=== PATIENT | female | born 1990 | race Caucasian/White ===

== ENCOUNTER 2017-05-30 20:22 | Emergency (ER) | payer BC, OTHER ==
[~2017-05-30] VITALS: Ht 170.2 cm; Wt 117.9 kg
--- NOTE | 2017-05-30 22:31 | ED Lower Extremity ---
General Chief Complaint: Lower Extremity Stated Complaint: LEG INJ Nursing Triage Note: patient reports R leg pain after falling through deck sunday Nursing Sepsis Screen: No Definite Risk Source: patient Exam Limitations: no limitations History of Present Illness Date Seen by Provider: May 30, 2017 Time Seen by Provider: 22:16 Initial Comments Patient presents to ER by private conveyance with a chief complaint of 5 days ago she fell through a deck scraping the lateral side of her right leg and bruising the medial side of her left leg. The bruising and swelling were iced for the first several days but they've then persisted and she is now having some swelling and edema around her left ankle although she is having no pain. She is walking appropriately. She has no prior history of injury to her right leg. She's never had a clot nor does she have any primary family history of clots. She has no clotting disorder or easy eating or bruising disorder. She is not on any medications nor does she take a control. She does not smoke cigarettes. She was concerned however because she took picture of incentive to her sister who is a nurse and her sister told her that it might be a DVT. Allergies and Home Medications Allergies Coded Allergies: No Known Drug Allergies (Unverified , 05/30/17) Home Medications No Active Prescriptions or Reported Meds Patient Home Medication List Home Medication List Reviewed: Yes Constitutional: No chills, No diaphoresis Respiratory: No cough, No hemoptysis, No phlegm, No short of breath Cardiovascular: No chest pain, No Hx of Intervention, No palpitations Gastrointestinal: No abdominal pain, No constipation, No nausea Genitourinary: No discharge, No dysuria : No LMP: May 09, 2017 Control/STD Prophylaxis: None Musculoskeletal: No back pain, No joint pain Skin: see HPI, change in color (old bruising) Past Mwarfav-Uzjqzf-Weihxn Hx Patient Social History Alcohol Use: Denies Use Recreational Drug Use: No Smoking Status: Never a Smoker Recent Foreign Travel: No Contact w/Someone Who Travel: No Recent Infectious Disease Expo: No Physical Abuse: No Sexual Abuse: No Surgeries History of Surgeries: No Respiratory History of Respiratory Disorde: No Cardiovascular History of Cardiac Disorders: No Neurological History of Neurological Disord: No Genitourinary History of Genitourinary Disor: No Gastrointestinal History of Gastrointestinal Di: No Musculoskeletal History of Musculoskeletal Dis: No Endocrine History of Endocrine Disorders: No HEENT History of HEENT Disorders: No Cancer History of Cancer: No Psychosocial History of Psychiatric Problem: No Suicide Risk Score: 0 Integumentary History of Skin or Integumenta: No Blood Transfusions History of Blood Disorders: No Physical Exam Vital Signs Vital Signs - First Documented 05/30/17 22:01 Temp 98.2 Pulse 81 Resp 18 B/P (MAP) 157/100 (119) Pulse Ox 100 Capillary Refill : Less Than 3 Seconds General Appearance: WD/WN, no apparent distress HEENT: PERRL/EOMI, pharynx normal Neck: non-tender, normal inspection Cardiovascular: normal peripheral pulses, regular rate, rhythm Respiratory: chest non-tender, lungs clear, normal breath sounds, no respiratory distress, no accessory muscle use Gastrointestinal: non tender, soft Hips: bilateral hip non-tender, bilateral hip normal inspection, bilateral hip normal range of motion, bilateral hip no evidence of injury Legs: left leg non-tender, left leg normal inspection, bilateral leg normal range of motion, left leg no evidence of injury, right leg soft tissue tenderness, right leg swelling (mild medial knee and ankle) Knees: bilateral knee non-tender, bilateral knee normal inspection, bilateral knee normal range of motion, bilateral knee no evidence of injury, bilateral knee other (no evidence of ligament this injury) Ankles: bilateral ankle non-tender, left ankle normal inspection, bilateral ankle normal range of motion, bilateral ankle no evidence of injury, right ankle swelling (mild medial swelling from dependent drainage from the large bruise on the left medial knee), bilateral ankle other (negative for Homans sign , erythema, knotty or nodular to palpation.) Feet: bilateral foot non-tender, bilateral foot normal inspection, bilateral foot normal range of motion, bilateral foot no evidence of injury Neurologic/Tendon: normal sensation, normal motor functions, normal tendon functions, responds to pain, no evidence tendon injury Neurologic/Psychiatric: no motor/sensory deficits, alert, oriented x 3, other Skin: ecchymosis (old medial knee ecchymoses for some dependent ecchymoses in the right medial ankle.) Lymphatic: no adenopathy Progress/Results/Core Measures Results/Orders Vital Signs/I&O Vital Sign - Last 12Hours 05/30/17 22:01 Temp 98.2 Pulse 81 Resp 18 B/P (MAP) 157/100 (119) Pulse Ox 100 Blood Pressure Mean: 119 Progress Note : Time: 22:32 Progress Note No clinical evidence or signs of a DVT. The patient is a 5-day-old wound with a maturing bruise and minimal swelling of her right calf. The knee is unremarkable and the ankle was unremarkable for any ligaments injury. She has walking on it. She does not have any significant risk factors other than the injury for a DVT. She certainly having no evidence of a PE. We discussed that her clinical probability of a DVT being significant or present is exceptionally low and offered her an ultrasound if she wanted or she can just watch it and we did some thorough education on what to look for and she would prefer just to monitor it outpatient. Educated on rice therapy. Departure Impression Impression: Primary Impression: Traumatic ecchymosis of right lower leg Qualified Codes: S80.11XA - Contusion of right lower leg, initial encounter Additional Impression: Abrasion hip/leg Disposition: HOME, SELF-CARE Condition: Stable Departure-Patient Inst. Decision time for Depature: 22:33 Referrals: NO,LOCAL PHYSICIAN (PCP) Primary Care Physician Patient Instructions: Knee Pain (DC) Add. Discharge Instructions: Use a compression dressing, ice for the first 3 days after an injury and keep it elevated and rest it when possible. Stay mobile and active. If he started to notice red, knotty, firm, painful, warm to touch appearance of your leg or you start to have difficulty breathing, or chest pain return to the ER immediately. All discharge instructions reviewed with patient and/or family. Voiced understanding. Scripts No Active Prescriptions or Reported Meds Work/School Note: Work Release Form Date Seen in the Emergency Department: May 30, 2017 Return to Work: May 31, 2017 Restrictions: No Restrictions YOHAN MELO May 30, 2017 22:30
[2017-05-30 22:36] VITALS: BP 157/100
== END 2017-05-30 22:36 | disposition home or self-care (01) ==
LOC: EDUNIT# 20:22 → ER 20:25
DX: S80.11XA Contusion of right lower leg, initial encounter (principal); S70.211A Abrasion, right hip, initial encounter; W17.89XA Other fall from one level to another, initial encounter
CPT/HCPCS: 99283

== ENCOUNTER → 2018-07-09 | Outpatient (CLI) | payer MEDICAID ==
--- NOTE | 2018-07-09 16:00 | Diagnostic Imaging Report ---
PROCEDURE: US OB SINGLE FETUS <14 WKS. TECHNIQUE: Multiple real-time grayscale images were obtained over the gravid uterus in various projections. INDICATION: dating. FINDINGS: There is a single live intrauterine fetus of approximately 12 weeks 3 days gestational age. heart rate was recorded at 155 beats per minute. No perigestational sac hemorrhage is detected. Gestational sac shape is within normal limits. Ovaries were not visualized. No adnexal mass or free fluid is seen. IMPRESSION: Single live IUP of 12 weeks 3 days gestational age. Estimated date of confinement sonographically is 01/18/2019. Dictated by: Dictated on workstation # [id number]
== END ==
LOC: RAD 14:58
PROVIDERS: ATTEND Obstetrics & Gynecology
DX: O36.80X0 Pregnancy with inconclusive fetal viability, not applicable or unspecified (principal); Z3A.12 12 weeks gestation of pregnancy
CPT/HCPCS: 76801

== ENCOUNTER → 2018-08-28 | Outpatient (CLI) | payer MEDICAID ==
--- NOTE | 2018-08-28 15:58 | Diagnostic Imaging Report ---
INDICATION: survey. TECHNIQUE: Multiple real-time grayscale images were obtained over the gravid uterus. COMPARISON: 07/09/2018. FINDINGS: There is a single live fetus in a variable presentation. heart rate was recorded at 146 beats per minute. Placenta is anterior. Amniotic fluid volume is unremarkable. Cervical length is 3.6 cm. survey shows kidneys, bladder and stomach to be unremarkable. The brain is unremarkable. There is a three-vessel cord with normal insertion. The spine is unremarkable. Four-chamber heart view is limited in evaluation. Biometrical measurements are as follows: Biparietal 4.84 cm, age 20 weeks 5 days. Head circumference 17.44 cm, age 20 weeks 0 days. Abdominal circumference 14.24 cm, age 19 weeks 5 days. Femur length 3.27 cm, age 20 weeks 2 days. Sonographic estimate age: 20 weeks 2 days. Sonographic estimated date of delivery: 01/13/2019. Estimated Weight: 321 gm (+/- 47 gm). LMP percentile: 66%. heart rate: 146 beats per minute. number: 1 of 1. IMPRESSION: Single live IUP 20 weeks 2 day gestational age demonstrating normal interval growth when compared with prior study. survey is unremarkable although the four-chamber heart view was somewhat limited. Dictated by: Dictated on workstation # [id number]
== END ==
LOC: RAD 14:07
PROVIDERS: ATTEND Obstetrics & Gynecology
DX: Z36.89 Encounter for other specified antenatal screening (principal); Z3A.20 20 weeks gestation of pregnancy
CPT/HCPCS: 76805

== ENCOUNTER → 2018-11-01 | Outpatient (CLI) | payer MEDICAID ==
--- NOTE | 2018-11-01 13:48 | Diagnostic Imaging Report ---
INDICATION: survey. TECHNIQUE: Multiple real-time grayscale images were obtained over the gravid uterus. COMPARISON: 08/28/2018 and 07/09/2018 FINDINGS: The previous OB ultrasound exam of 08/28/2018 noted single live fetus approximately 20 weeks x2 days gestation. There are no abnormalities identified although the four-chamber heart view with less than optimal. On this exam, the fetus is again visualized. The fetus is cephalic in presentation. heart motion was noted and a rate of 135 bpm was recorded. There were no abnormalities identified. In particular, the four-chamber heart view appears to within normal limits. The growth perimeters were not obtained for this study. Placenta is anterior and there is no previa. The amniotic fluid volume is within normal limits. Biometrical measurements are as follows: Biparietal cm, age weeks days. Head circumference cm, age weeks days. Abdominal circumference cm, age weeks days. Femur length cm, age weeks days. Sonographic estimate age: weeks days. Sonographic estimated date of delivery: . Estimated Weight: gm (+/- gm). LMP percentile: %. heart rate: beats per minute. number: of . IMPRESSION: 1. There is a single live fetus of approximately 28 weeks 6 days gestation. EDC remains 01/18/2019. 2. There were no abnormalities identified. In particular four-chamber heart view appears to be within normal limits. Dictated by: Dictated on workstation # [id number]
== END ==
LOC: RAD 10:39
PROVIDERS: ATTEND Obstetrics & Gynecology
DX: Z34.93 Encounter for supervision of normal pregnancy, unspecified, third trimester (principal); Z04.89 Encounter for examination and observation for other specified reasons; Z3A.28 28 weeks gestation of pregnancy
CPT/HCPCS: 76816

== ENCOUNTER 2019-01-19 19:58 | Inpatient (IN) | payer MEDICAID ==
[~2019-01-19] VITALS: Ht 170.2 cm; Wt 127.0 kg
--- NOTE | 2019-01-19 19:53 | NUR ---
KHOI HOWARD presented to unit via from ED, accompanied by s/o, with c/o INDUCTION 40 03/11. KHOI HOWARD weighed, gowned, voided, and to bed. EFHM and TOCO applied, VS taken. KHOI HOWARD oriented to bed controls, call light, TV, heat, and A/C controls.
--- NOTE | 2019-01-19 20:05 | NUR ---
ATTEMPTED TO INITIATE AT THIS TIME. UNABLE TO FIND FHT. PT REPORTS SHE HASN'T FELT MUCH MOVEMENT FOR THE LAST WEEK AND DEFINITELY NOT IN THE LAST SEVERAL DAYS. PT REPORTS SHE HAD GOOD FHT AT HER APPT ON SUNDAY. SONO MACHINE OBTAINED TO DETERMINE POSITION. UNABLE TO FIND ANY HEART MOVEMENT AFTER A COUPLE OF MINUTES. DR CAPELLAN CALLED AND ABOVE REPORTED. WILL PRESENT TO HOSPITAL.
[2019-01-19 20:10] VITALS: BP 130/81
--- NOTE | 2019-01-19 20:45 | NUR ---
DR PAGE HERE PER DR CAPELLAN'S PHONE CONVERSATION WITH HIM TO CONFIRM NO FHT.
[2019-01-19] MEDS ORDERED: D5 LR IV SOLUTION 1,000 ML IV SCH (20:58)
[2019-01-19] MEDS ORDERED: ceFAZolin 2 GM IV Premixed 50 ML IV SCH (20:58)
[2019-01-19] MEDS ORDERED: CITRIC ACID/SOB CIT (BICITRA) 30 ML UDC PO ONE (21:00)
[2019-01-19] MEDS ORDERED: METOCLOPRAMIDE INJ 10 MG/2 ML (REGLAN) IV ONE (21:00)
[2019-01-19] MEDS ORDERED: FAMOTIDINE 20MG/2ML IV (PEPCID) IV ONE (21:00)
[2019-01-19 21:10] VITALS: BP 134/83
[2019-01-19] MEDS ORDERED: LACTATED RINGERS 1,000 ML IV ONE (21:10)
--- NOTE | 2019-01-19 21:13 | NUR ---
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 PT WILL DECIDE IF SHE WISHES TO PROCEED WITH EPIDURAL FOR INDUCTION OR TO PROCEED WITH C/SECTION.
[2019-01-19 21:21] LABS: BASOPHILS % (AUTO) 0 % (0-10); EOSINOPHILS # (AUTO) 0.1 10^3/uL (0.0-0.3); EOSINOPHILS % (AUTO) 1 % (0-10); HEMATOCRIT 37 % (35-52); HEMOGLOBIN 12.4 G/DL (11.5-16.0); LYMPHOCYTES # (AUTO) 1.6 X 10^3 (1.0-4.0); LYMPHOCYTES % (AUTO) 13 % (12-44); MEAN CORPUSCULAR HEMOGLOBIN 30 PG (25-34); MEAN CORPUSCULAR HGB CONC 33 G/DL (32-36); MEAN CORPUSCULAR VOLUME 88 FL (80-99); MEAN PLATELET VOLUME 10.4 FL (7.4-10.4); MONOCYTES # (AUTO) 0.8 X 10^3 (0.0-1.0); MONOCYTES % (AUTO) 6 % (0-12); NEUTROPHILS # (AUTO) 9.8 X 10^3 (1.8-7.8); NEUTROPHILS % (AUTO) 80 % (42-75); PLATELET COUNT 416 10^3/uL (130-400); RED CELL DISTRIBUTION WIDTH 13.3 % (10.0-14.5); WHITE BLOOD COUNT 12.3 10^3/uL (4.3-11.0)
--- NOTE | 2019-01-19 21:24 | History & Physical-OB ---
OB - Chief Complaint & HPI Date/Time Date of Admission: Date of Admission: Jan 19, 2019 at 19:58 Date seen by a Provider: Jan 19, 2019 Time Seen by a Provider: 08:20 Chief Complaint/History OB-Reason for Admission/Chief: Obstetrical Complication Hx : 1 Hx Para: 0 Expected Date of Delivery: Jan 18, 2019 Gestational Age in Weeks: 40 Gestational Age in Days: 1 Other reason for admission: induction at term History of Labs Rub I VDRL NR Hep B/C - HIV - GBS + A+ Other Patient was admitted for induction at 40 weeks for induction. She had an unfavorable cervix and was planned for cervical ripening. She arrived on the floor and the RN reported the patient had reported not feeling much movement since her visit with me on Sunday. She had not felt contractions but had not movement either. States she felt like the "baby may have been sleeping" and had been worried that something was wrong. She has not had leakage of fluid, bleeding, discharge, fever. We did do exam Sunday and there was amniotic fluid. Bedside US was done because I was uncertain of the position before I checked the cervix. But the position was vertex and there was adequate fluid, and movement noted on the US. the cervix was unfavorable so she was scheduled for induction and hearttones were 142. The RN did not find heart tones so she called me and I arrived immediately at the hospital and confirmed no movement and no hearttones. I called Dr. Gore to confirm this finding with another US with Dopplers. She has not felt ill, has not had headache or blurred vision. Has not had elevated blood pressures or elevated blood sugars that she knows of. Her has been uncomplicated. She does state that she has not felt the baby move as well as normal for the past few days. has been uncomplicated. She did have normal NIPT Normal US though the 20 week survey did not have a complete cardiac US but a repeat US was wnl. Allergies and Home Medications Allergies Coded Allergies: No Known Drug Allergies (Unverified , 05/30/17) Home Medications No Active Prescriptions or Reported Meds Patient Home Medication List Home Medication List Reviewed: Yes OB - History Hx of Present Care: Yes Ultrasounds: Normal mid trimester US Obstetrical Complications: None Medical Complications: None Information Induced Hypertension: No Maternal Gestational Diabetes: No Hemorrhage: No Obstetrical History Hx : 1 Hx Para: 0 Hx # Term Pregnancies: 0 Hx # Pregnancies: 0 Number of Living Children: 0 Patient Past Medical History NC Social History/Family History HIV/AIDS: No Recent Infectious Disease Expo: No Sexually Transmitted Disease: No Alcohol Use: Denies Use Recreational Drug Use: No Immunizations Hepatitis A: No Hepatitis B: No Tetanus Booster (TDap): Less than 5yrs Rubella: immune RPR/VDRL: Negative GBS Status: Positive HBsAG: Negative OB - Admission Exam Physical Exam Vitals: 130/80 37.3 HEENT: NCAT Heart: Rhythm Normal Lungs: Clear Abdomen: Gravid Extremities: Normal Reflexes: Normal Cervical Dilatation: other (declined) Membranes: Intact OB - Assessment/Plan/Diagnosis Assessment Assessment: other (detal demise at 40 weeks) Admission Dx 1. demise 2. 40 week gestation Admission Status: Inpatient Order (span 2 midnights) Reason for Inpatient Admission: delivery Plan Plan: Section (the patient was offered induction of labor or section. She has opted for section as cervix is unfavorable and the fetus is suspected to be large for gestational age. We will plan section under spinal anesthesia. Risks include infection, bleeding, injury to bowel, bladder and ureter. She understands these risks and understands that there are risks associated with anesthesia. After we planned the cesaren sectoin it was determined that she had eaten within the last few house. We will plan the section for tomorrow am. She has had some contractions and mild ), Other (causing some cramping. Will still plan Cs in the am. Consents h ave been signed. Will do torch titers, CMP, TSH, CBC, T&S and other workup for demise. Will consider other workup after delviery of the fetus. ) MYRON CAPELLAN DO Jan 19, 2019 21:24 POS
--- NOTE | 2019-01-19 21:35 | NUR ---
Emilie ARECHIGA CRNA HERE. IN TO TALK WITH PT.
[2019-01-19 21:37] LABS: PROTHROMBIN TIME PATIENT 13.6 SEC (12.2-14.7)
[2019-01-19] MEDS ORDERED: LACTATED RINGERS 1,000 ML BAG IV ONE (21:37)
[2019-01-19 21:43] LABS: ALANINE AMINOTRANSFERASE 20 U/L (0-55); ALBUMIN 3.6 GM/DL (3.2-4.5); ALKALINE PHOSPHATASE 265 U/L (40-136); BILIRUBIN,TOTAL 0.4 MG/DL (0.1-1.0); BUN/CREATININE RATIO 11; CALCIUM 9.4 MG/DL (8.5-10.1); CARBON DIOXIDE 17 MMOL/L (21-32); CHLORIDE 106 MMOL/L (98-107); CREATININE SERUM 0.71 MG/DL (0.60-1.30); GFR ESTIMATED > 60; GLUCOSE 89 MG/DL (70-105); POTASSIUM 4.3 MMOL/L (3.6-5.0); SODIUM 135 MMOL/L (135-145); TOTAL PROTEIN 7.7 GM/DL (6.4-8.2)
--- NOTE | 2019-01-19 21:45 | NUR ---
DECISION MADE TO POSTPONE C/SECTION UNTIL 0730 D/T PT EATING AT 1800. PLAN DISCUSSED WITH PT AND FAMILY.
[2019-01-19] MEDS ORDERED: NIFEdipine 10 MG CAPS (WOMEN'S SERVICES ONLY!!!) PO ONE ×2 (21:49→22:00)
[2019-01-19] MEDS ORDERED: morphine INJ 10 MG/ML 1ML (SYR OR VIAL) IVP STA (21:51)
[2019-01-19] MEDS ORDERED: CATHETER FLUSH 10 ML SYR IV SCH (22:00)
--- NOTE | 2019-01-19 22:25 | NUR ---
PT AMB TO RM 303 FOR COMFORT.
[2019-01-19 23:00] VITALS: BP 128/79
[2019-01-20] VITALS (11 sets, daily range): BP systolic 108–129; BP diastolic 62–79
--- NOTE | 2019-01-20 00:40 | NUR ---
ADIEL ADMINISTERED PT IS HAVING TROUBLE RESTING.
[2019-01-20] MEDS: ZOLPIDEM 5 MG (AMBIEN) TAB PO SCH ×2 (00:43→21:59)
--- NOTE | 2019-01-20 01:30 | NUR ---
PT RESTING SOUNDLY. NO S/S OF DISTRESS OR DISCOMFORT NOTED.
[2019-01-20] MEDS ORDERED: NIFEdipine 10 MG CAPS (WOMEN'S SERVICES ONLY!!!) PO SCH (02:00)
--- NOTE | 2019-01-20 03:15 | NUR ---
PT CONT TO REST WELL. NO S/S OF DISTRESS OR DISCOMFORT NOTED.
--- NOTE | 2019-01-20 05:30 | NUR ---
PT RESTING WELL. S/O AND MOTHER ALSO RESTING AT SIDE. PT NOT AWAKENED AT THIS TIME.
[2019-01-20] MEDS ORDERED: FAMOTIDINE 20MG/2ML IV (PEPCID) ONE (05:46)
[2019-01-20] MEDS ORDERED: METOCLOPRAMIDE INJ 10 MG/2 ML (REGLAN) ONE (05:46)
[2019-01-20] MEDS ORDERED: OXYTOCIN/NORMAL SALINE 1,000 ML IV ONE (07:00)
[2019-01-20] MEDS ORDERED: DEXAMETHASONE 10 MG/ML (DECADRON) 1 ML VIAL ONE (07:01)
[2019-01-20] MEDS ORDERED: ONDANSETRON 4 MG/2 ML (SDV) Z0FRAN ONE (07:01)
[2019-01-20] MEDS ORDERED: METOCLOPRAMIDE INJ 10 MG/2 ML (REGLAN) IV ONE (07:02)
[2019-01-20] MEDS ORDERED: FAMOTIDINE 20MG/2ML IV (PEPCID) IV ONE (07:03)
[2019-01-20] MEDS ORDERED: proPOfol 200 MG/20 ML (DIPRIVAN) VIAL IV ONE (07:04)
[2019-01-20] MEDS ORDERED: fentaNYL INJECTION 100 MCG/2 ML AMP ONE (07:04)
--- NOTE | 2019-01-20 07:15 | NUR ---
TO OB OR AMB FOR A PRIMARY SECTION BY DR. CAPELLAN OF A NON-VIABLE ACC BY CLINICAL LABORATORY SERVICE TEACHER.
[2019-01-20] MEDS ORDERED: MIDAZOLAM 2 MG/2 ML (VERSED) VIAL ONE (07:16)
[2019-01-20] MEDS ORDERED: ceFAZolin 2 GM IV Premixed 50 ML ONE (07:19)
--- NOTE | 2019-01-20 07:24 | Progress Note-Pre Operative ---
Pre-Operative Progress Note H&P Reviewed The H&P was reviewed, patient examined and no changes noted. Date Seen by Provider: Jan 20, 2019 Time Seen by Provider: 07:00 Date H&P Reviewed: Jan 20, 2019 Time H&P Reviewed: 07:00 Pre-Operative Diagnosis: demise at 40 weeks, unfavorable cervix MYRON CAPELLAN DO Jan 20, 2019 07:24 POS
[2019-01-20] MEDS ORDERED: LACTATED RINGERS 1,000 ML IV PRN (07:36)
--- NOTE | 2019-01-20 07:44 | NUR ---
0744 NON-VIABLE MALE DELIVERED VIA PRIMARY SECTION BY DR. CAPELLAN. SHOWN BRIEFLY TO MOM, DAD, AND GRANDMOTHER. TO WARMER TO WIPE OFF EXCESS BLOOD. 0746 WEIGHT OBTAINED AT 8#0 OZ. WRAPPED IN BLANKETS. 0748 TO DAD'S ARMS PER MOM'S REQUEST. 0750 PLACED IN MOM'S ARMS THEN TO GRANDMOTHER. 0800 THIS RN STANDING WITH DAD AND GRANDMOTHER IN OR WHILE PT BEING CONSOLED BY FAMILY. GRANDMOTHER HOLDING INFANT. 0825 INFANT PLACED IN OPEN CRIB AND TRANSFERRED TO OB PAR AWAITING TRANSFER OF MOM TO OB PAR.
[2019-01-20] MEDS ORDERED: BUPIVACAINE 0.25% 30 ML (SENSORCAINE) VIAL ONE (08:05)
[2019-01-20] MEDS ORDERED: OXYTOCIN/NORMAL SALINE 500 ML IV SCH (08:28)
[2019-01-20] MEDS ORDERED: LORazepam 0.5 MG (ATIVAN) TABLET PO PRN (08:30)
[2019-01-20] MEDS ORDERED: morphine INJ 4 MG/ML 1 ML (VIAL/SYRINGE) IVP PRN (08:30)
[2019-01-20] MEDS ORDERED: TETANUS,DIPTH,PERTUSS P/F (BOOSTRIX) 0.5 ML VIAL IM SCH (08:30)
[2019-01-20] MEDS ORDERED: MEASLES,MUMPS,RUBELLA 1 EA INJ SC SCH (08:30)
--- NOTE | 2019-01-20 08:34 | Cesarean Section Operative ---
Procedure Procedure Note Pre-operative Diagnosis: Lise Ordoñez is a 28 /Para 1 / 0, Gestational Age 40 2/7 weeks with demise unfavorable cervix Post-operative Diagnosis: same Procedure: Primary low transverse section Physician: MYRON CAPELLAN [employer] Internship: MICHI Schulte Estimated blood loss: 500 mL Disposition: stable Findings: Nonviable male , 8 #, intact placenta, 3vc/ nuchal cord, normal appearing uterus, tubes, and ovaries. Light meconium Indications:Lise Ordoñez is a 28 /Para 1 / 0,Gestational Age 40 2/7 weeks with demise unfavorable cervix Procedure Details: The patient was seen in pre-op and the procedure was discussed with the patient in full, including the risks, benefits, and alternatives. All questions were answered. The patient was taken to the operating room and a time out was performed, verifying patient and procedure. After spinal anesthesia was placed by our anesthesia colleagues, the patient was placed in the dorsal supine with leftward tilt for uterine displacement.~ Her abdomen was then prepped and draped in the typical sterile fashion. A Pf annenstiel skin incision was made using a scalpel and carried down through the underlying fascia. The fascia was incised in the midline and tented up using Phuong clamps. On both the inferior and superior fascia side the rectus muscle was dissected off bluntly and sharply using Palacios scissors. The peritoneum was identified and entered bluntly in the midline. This was then stretched laterally using manual strength. After entering the abdominal cavity and confirming lack of intraperitoneal adhesions, a large Antoine retractor was placed and the lower uterine segment was visualized. A bladder flap was created with the use of Metzenbaum scissors.~ A scalpel was utilized to make a low transverse uterine incision. Amniotomy was performed with an Allis clamp with return of clear fluid. The 's head was grasped and brought to the level of the incision. Fundal pressure was applied and infant was delivered without difficulty. Mouth and nares were suctioned with bulb suction. After the umbilical cord was clamped and cut, the was handed off to the pediatric staff. A sample of cord blood was then obtained. The placenta was delivered intact via uterine massage. The uterus was exteriorized and cleared of all clots and debris. The uterine incision was closed using 0 Vicryl in a running locked fashion. A second imbricated layer was placed using 0 Vicryl in a running fashion as well. The uterus was flexed forward and the posterior rectouterine space was inspected and cleared of all clots and debris. Again the hysterotomy site was examined and hemostasis was observed. The bilateral tubes and ovaries appeared normal. The uterus was placed back into the abdominal cavity and abdominal gutters were cleared of all clots and debris. A final check of the uterine incision showed it to be hemostatic. The peritoneum was closed using 3-0 Vicryl in a running fashion. The fascia was closed with 0 Vicryl in a running fashion. The subcutaneous space was hemostatic, and irrigated. The subcutaneous space was closed with 3-0 Vicryl in several single interrupted stitches. The skin was then closed using 4-0 Monocryl in a running subcuticular fashion. The skin edges were reapproximated together and were hemostatic. A pressure dressing was applied. All sponge, lap and needle counts were correct at the end of the procedure per nursing. Vitals - Labs Vital Signs - I&O Vital Signs Date Time Temp Pulse Resp B/P (MAP) Pulse Ox O2 Delivery O2 Flow Rate FiO2 01/20/19 07:00 36.8 99 18 125/75 (92) 98 01/19/19 23:00 36.9 104 18 128/79 (95) 01/19/19 21:10 37.3 113 18 134/83 (100) 01/19/19 20:10 37.3 108 18 99 Room Air 01/19/19 20:10 37.3 108 18 99 Room Air I & O 01/20/19 07:00 Intake Total 2007 ml Balance 2007 ml Labs Laboratory Tests 01/19/19 21:00: White Blood Count 12.3H, Red Blood Count 4.20L, Hemoglobin 12.4, Hematocrit 37, Mean Corpuscular Volume 88, Mean Corpuscular Hemoglobin 30, Mean Corpuscular Hemoglobin Concent 33, Red Cell Distribution Width 13.3, Platelet Count 416H, M leo Platelet Volume 10.4, Neutrophils (%) (Auto) 80H, Lymphocytes (%) (Auto) 13, Monocytes (%) (Auto) 6, Eosinophils (%) (Auto) 1, Basophils (%) (Auto) 0, Neutrophils # (Auto) 9.8H, Lymphocytes # (Auto) 1.6, Monocytes # (Auto) 0.8, Eosinophils # (Auto) 0.1, Basophils # (Auto) 0.0, Prothrombin Time 13.6, INR Comment 1.0, Activated Partial Thromboplast Time 28, Sodium Level 135, Potassium Level 4.3, Chloride Level 106, Carbon Dioxide Level 17L, Anion Gap 12, Blood Urea Nitrogen 8, Creatinine 0.71, Estimat Glomerular Filtration Rate > 60, BUN/Creatinine Ratio 11, Glucose Level 89, Calcium Level 9.4, Corrected Calcium 9.7, Total Bilirubin 0.4, Aspartate Amino Transf (AST/SGOT) 27, Alanine Aminotransferase (ALT/SGPT) 20, Alkaline Phosphatase 265H, Total Protein 7.7, Albumin 3.6 MYRON CAPELLAN DO Jan 20, 2019 08:34 POS
[2019-01-20] MEDS ORDERED: PHENYLEPHRINE 100 MCG/ML 10 ML (ANESTHESIA) SYR ONE (08:54)
--- NOTE | 2019-01-20 09:50 | NUR ---
TRANSFERRED TO PP ROOM 303 VIA PT BED FROM OB PAR AFTER A PRIMARY SECTION BY DR. CAPELLAN OF A STILLBORN MALE INFANT ACC BY ARMEN RN, [facility] TECH, PT'S MOM, S.O., AND STILLBORN IN CUDDLE COT. BED TO LOW POSITION. SIDE RAILS UP X4. CALL LIGHT PLACED WITHIN REACH. REVIEWED CALL LIGHT OPERATION AND BED CONTROLS WITH PT AND FAMILY. A/O X4. COLOR PINK. PT TEARFUL. LOTS OF FAMILY AT BEDSIDE.
[2019-01-20] MEDS: KETOROLAC 30 MG/ML VIAL IV SCH ×2 (10:50→17:34)
--- NOTE | 2019-01-20 11:15 | NUR ---
FAMILY AT BEDSIDE. COURTESY CART TO ROOM FROM DIETARY.
--- NOTE | 2019-01-20 11:55 | NUR ---
ASSISTED UP TO THE BATHROOM. VOIDED 100 CC URINE. PERICARE PERFORMED WITH PAD/UNDERWEAR CHANGE. BACK TO BED WITHOUT DIFFICULTY.
--- NOTE | 2019-01-20 14:15 | NUR ---
UP TO THE BATHROOM WITH MINIMAL ASSIST. VOIDED 900 CC URINE. VAG FLOW LT RUBRA. NO CLOTS. BACK TO BED. FAMILY AT BEDSIDE. REMAINS IN ROOM IN CUDDLE COT. FF U/1. VAG FLOW LT RUBRA.
[2019-01-20] MEDS: ACETAMINOPHEN 500 MG TAB (TYLENOL) PO SCH (14:30)
[2019-01-20] MEDS: METOCLOPRAMIDE 10 MG (REGLAN) TAB PO SCH ×2 (14:30→20:48)
[2019-01-20] MEDS: DOCUSATE SODIUM 100 MG (COLACE) CAP PO SCH ×2 (14:30→20:47)
--- NOTE | 2019-01-20 15:30 | NUR ---
CHAPLAIN SLADE CALLED TO CHECK ON PT AND FAMILY. DR. CAPELLAN HERE TO TALK TO FAMILY PER THEIR REQUEST.
--- NOTE | 2019-01-20 15:50 | NUR ---
DROIE HERE TO DO PHOTOS. TO NURSERY FOR INITIAL PHOTOS WHILE DR. CAPELLAN TALKING TO FAMILY AND ANSWERING QUESTIONS.
--- NOTE | 2019-01-20 16:16 | NUR ---
[employer] Worker visits throughout the day beginning at 1010 when ALFONSO Dillon notified me of demise. Provided active listening, assisted with providing information about cremation and burial, and offered safe place for grief. Provided pt and her significant other, Mainor, with a sympathy card and grief care resources.
--- NOTE | 2019-01-20 16:18 | NUR ---
The pt will be cremated through [facility].
--- NOTE | 2019-01-20 16:30 | NUR ---
PT UP TO THE BATHROOM BY HERSELF. S.O. IN ROOM. MOVING WELL. MENU GIVEN AND DIETARY NOTIFIED.
--- NOTE | 2019-01-20 17:00 | NUR ---
CHAPLAIN MELINA GUAJARDOLING HERE TO BLESS BABY PER PARENTS REQUEST.
--- NOTE | 2019-01-20 17:45 | NUR ---
EATING DINNER. S.O. AT BEDSIDE. IN CUDDLE COT.
--- NOTE | 2019-01-20 17:55 | NUR ---
REQUESTS SECOND OXYIR 5 MG FOR PAIN RATED 5/10.
--- NOTE | 2019-01-20 18:15 | NUR ---
HOLDING . STATES FAMILY COMING BACK UP TO SEE BEFORE SENDING TO MORTUARY.
--- NOTE | 2019-01-20 19:00 | NUR ---
ICE PACK FRESHENED.
--- NOTE | 2019-01-20 21:03 | NUR ---
Mortuary notified to cloth picker fetus per pt's request.
--- NOTE | 2019-01-20 21:54 | NUR ---
[facility] here to nut picker fetus, Mort[facility] Release of Body completed & signed by [employer] employee.
[2019-01-21] MEDS: IBUPROFEN 600 MG (MOTRIN) TAB PO SCH ×3 (00:13→12:29)
[2019-01-21 00:18] VITALS: BP 109/64
[2019-01-21] MEDS: ACETAMINOPHEN 500 MG TAB (TYLENOL) PO SCH ×3 (00:18→16:28)
[2019-01-21] MEDS: CATHETER FLUSH 10 ML SYR IV SCH ×2 (00:18→06:35)
[2019-01-21] MEDS: KETOROLAC 30 MG/ML VIAL IV SCH ×2 (00:18→06:35)
[2019-01-21 04:10] VITALS: BP 107/71
[2019-01-21] MEDS: METOCLOPRAMIDE 10 MG (REGLAN) TAB PO SCH ×3 (04:10→12:30)
[2019-01-21 05:44] LABS: BASOPHILS % (AUTO) 0 % (0-10); EOSINOPHILS % (AUTO) 0 % (0-10); HEMATOCRIT 30 % (35-52); HEMOGLOBIN 9.8 G/DL (11.5-16.0); LYMPHOCYTES % (AUTO) 21 % (12-44); MEAN CORPUSCULAR HEMOGLOBIN 30 PG (25-34); MEAN CORPUSCULAR HGB CONC 33 G/DL (32-36); MEAN CORPUSCULAR VOLUME 92 FL (80-99); MEAN PLATELET VOLUME 10.5 FL (7.4-10.4); MONOCYTES # (AUTO) 0.6 X 10^3 (0.0-1.0); MONOCYTES % (AUTO) 7 % (0-12); NEUTROPHILS # (AUTO) 6.8 X 10^3 (1.8-7.8); NEUTROPHILS % (AUTO) 72 % (42-75); PLATELET COUNT 330 10^3/uL (130-400); WHITE BLOOD COUNT 9.5 10^3/uL (4.3-11.0)
[2019-01-21] MEDS: DOCUSATE SODIUM 100 MG (COLACE) CAP PO SCH (07:29)
[2019-01-21 08:00] VITALS: BP 110/66
--- NOTE | 2019-01-21 08:00 | NUR ---
A.M. ASSESSMENT COMPLETED. VSS. GETTING INTO SHOWER. ICE PACK FRESHENED.
--- NOTE | 2019-01-21 10:00 | NUR ---
FAMILY AT BEDSIDE. DOING BETTER AT THIS TIME. SUPPORT GIVEN.
--- NOTE | 2019-01-21 11:20 | NUR ---
DR. CAPELLAN IN TO SEE PT.
[2019-01-21 12:30] VITALS: BP 122/65
--- NOTE | 2019-01-21 14:00 | NUR ---
SLEEPING QUIETLY. FAMILY AT BEDSIDE.
[2019-01-21] MEDS ORDERED: DOCU100C37 PO (14:49)
[2019-01-21] MEDS ORDERED: IBUP-844 PO (14:49)
[2019-01-21] MEDS ORDERED: Zolpidem Tartrate PO (14:49)
[2019-01-21] MEDS ORDERED: ACET-77 PO (14:49)
[2019-01-21] MEDS ORDERED: OXC5T PO (14:49)
--- NOTE | 2019-01-21 14:51 | Discharge Inst-Women's Service ---
Discharge Inst-Women's Serv Depart Medication/Instructions New, Converted or Re-Newed RX: RX on Chart Instructions nothing in the vagina for 6 weeks Final Diagnosis intrauterine demise primary section acute blood loss anemia Problems Reviewed?: Yes Consults/Follow Up Additional Follow Up: Yes (1 week for incision check) Activity Activity: Activity as Tolerated Driving Instructions: No Driving for 1 Week NO SMOKING: NO SMOKING Nothing Inside Vagina: No Douching, No Salley, No Tampons Diet Discharge Diet: No Restrictions Symptoms to Report to : Swelling Increased, Bleeding Excessive, Pain Increased, Vaginal Bleeding Increase, Cramps in Feet or Legs, Vaginal Discharge Foul For Any Problems or Questions: Contact Your Physician Skin/Wound Care Infection Signs and Symptoms: Increased Redness, Foul Odor of Wound, Increased Drainage, Skin Itchy or Has a Rash, Increased Swelling, Temperature Above 101 F Operative Area Clean and Dry: Keep Incision Clean/Dry Stitches/Rob/Dermabond: Dermabond Bathing Instructions: MYRON Candelario DO Jan 21, 2019 14:51 POS
--- NOTE | 2019-01-21 15:00 | Anesthesia-General Post-Op ---
General Patient Condition Mental Status/LOC: Same as Preop Cardiovascular: Satisfactory Nausea/Vomiting: Absent Respiratory: Satisfactory Pain: Controlled Complications: Absent Post Op Complications Complications None Follow Up Care/Instructions Patient Instructions None needed. Anesthesia/Patient Condition Patient Condition Patient is doing well, no complaints, stable vital signs, no apparent adverse anesthesia problems. No complications reported per nursing. MARLIN GARCIA CRNA Jan 21, 2019 15:00 POS
--- NOTE | 2019-01-21 15:04 | Discharge Summary ---
Discharge Summary Hospital Course Hospital Course Date of Admission: Jan 19, 2019 at 19:58 Admission Diagnosis : Family Physician/Provider: Cinthia Dick Dnp Date of Discharge: 01/21/19 Discharge Diagnosis: [ ] Hospital Course: [ ] Labs and Pending Lab Test: Laboratory Tests 01/21/19 05:15: White Blood Count 9.5, Red Blood Count 3.28L, Hemoglobin 9.8#L, Hematocrit 30L, Mean Corpuscular Volume 92, Mean Corpuscular Hemoglobin 30, Mean Corpuscular Hemoglobin Concent 33, Red Cell Distribution Width 13.0, Platelet Count 330, Mean Platelet Volume 10.5H, Neutrophils (%) (Auto) 72, Lymphocytes (%) (Auto) 21, Monocytes (%) (Auto) 7, Eosinophils (%) (Auto) 0, Basophils (%) (Auto) 0, Neutrophils # (Auto) 6.8, Lymphocytes # (Auto) 2.0, Monocytes # (Auto) 0.6, Eosinophils # (Auto) 0.0, Basophils # (Auto) 0.0 Microbiology 01/19/19 Urine Culture - Final, Complete NO GROWTH 01/20/19 Gram Stain, Resulted Pending 01/20/19 Anaerobic Culture, Resulted Pending 01/20/19 Surgical Culture - Preliminary, Resulted No growth Home Meds Active Acetaminophen 500 Mg Tablet 1,000 Mg PO Q8HR Docusate Sodium 100 Mg Capsule 100 Mg PO BID [Zolpidem Tartrate] 5 MG Tab 5 Mg PO HS Oxycodone IR (Oxycodone HCl) 5 Mg Tab 5 Mg PO Q4HR Ibu (Ibuprofen) 600 Mg Tablet 600 Mg PO Q6HR Discharge Physical Examination Allergies: Coded Allergies: No Known Drug Allergies (Unverified , 05/30/17) Vitals & I&Os Vital Signs Date Time Temp Pulse Resp B/P (MAP) Pulse Ox O2 Delivery O2 Flow Rate FiO2 01/21/19 12:30 36.8 74 18 122/65 (84) 99 Room Air 01/20/19 08:29 2 Discharge Summary Date of Admission Jan 19, 2019 at 19:58 Date of Discharge Discharge Date: Jan 21, 2019 Clinical Quality Measures DVT/VTE Risk/Contraindication: Risk Factor Score Per Nursin RFS Level Per Nursing on Admit: 2=Moderate MYRON CAPELLAN DO Jan 21, 2019 15:04 POS
[2019-01-21 16:00] VITALS: BP 129/76
--- NOTE | 2019-01-21 16:55 | NUR ---
DISCHARGE INSTRUCTIONS REVIEWED WITH PT AND COPY GIVEN. STATES UNDERSTANDING OF ALL INSTRUCTIONS AND NEED TO F/U SCHEDULED AND NEEDED. MOM LEFT TO GET RXS FILLED.
[2019-01-21 17:15] VITALS: BP 129/76
--- NOTE | 2019-01-21 17:15 | NUR ---
DISMISSED FROM [facility] VIA W/C TO FAMILY CAR IN STABLE CONDITION ACC BY Mynor,MOTHER, AND ARMEN INGRAM.
== END 2019-01-21 17:15 | disposition home or self-care (01) | DRG 787 ==
LOC: LDRP 19:58
PROVIDERS: ADMIT Obstetrics & Gynecology; ATTEND Obstetrics & Gynecology
PROC: 10D00Z1 Extraction of Products of Conception, Low, Open Approach (ICD-10-PCS; principal; 2019-01-20 07:17)
DX: O36.4XX0 Maternal care for intrauterine death, not applicable or unspecified (principal); D62 Acute posthemorrhagic anemia; Z37.1 Single stillbirth; Z3A.40 40 weeks gestation of pregnancy; O69.81X0 Labor and delivery complicated by cord around neck, without compression, not applicable or unspecified; O77.0 Labor and delivery complicated by meconium in amniotic fluid; O90.81 Anemia of the puerperium
CPT/HCPCS: 36415; 80053; 85025; 85610; 85730; 86644; 86645; 86695; 86696; 86762; 86777; 86778; 86850; 86900; 86901; 87070; 87075; 87088; 87205; 94664

== ENCOUNTER → 2019-06-25 | Outpatient (CLI) | payer BC ==
[~2019-06-25] MED LIST: ACET-78 PO; DOCU100C37 PO; IBUP-844 PO; OXC5T PO; Zolpidem Tartrate PO
[2019-06-25 09:44] LABS: BASOPHILS % (AUTO) 0 % (0-10); EOSINOPHILS # (AUTO) 0.1 10^3/uL (0.0-0.3); EOSINOPHILS % (AUTO) 1 % (0-10); HEMATOCRIT 39 % (35-52); HEMOGLOBIN 12.8 G/DL (11.5-16.0); LYMPHOCYTES # (AUTO) 1.7 X 10^3 (1.0-4.0); LYMPHOCYTES % (AUTO) 18 % (12-44); MEAN CORPUSCULAR HEMOGLOBIN 28 PG (25-34); MEAN CORPUSCULAR HGB CONC 33 G/DL (32-36); MEAN CORPUSCULAR VOLUME 87 FL (80-99); MEAN PLATELET VOLUME 9.9 FL (7.4-10.4); MONOCYTES # (AUTO) 0.5 X 10^3 (0.0-1.0); MONOCYTES % (AUTO) 5 % (0-12); NEUTROPHILS # (AUTO) 7.1 X 10^3 (1.8-7.8); NEUTROPHILS % (AUTO) 76 % (42-75); PLATELET COUNT 430 10^3/uL (130-400); RED CELL DISTRIBUTION WIDTH 13.5 % (10.0-14.5); WHITE BLOOD COUNT 9.3 10^3/uL (4.3-11.0)
[2019-06-25 09:50] LABS: ALBUMIN 4.4 GM/DL (3.2-4.5); CHLORIDE 105 MMOL/L (98-107); POTASSIUM 4.2 MMOL/L (3.6-5.0); SODIUM 139 MMOL/L (135-145)
[2019-06-25 09:51] LABS: CALCIUM 9.7 MG/DL (8.5-10.1)
[2019-06-25 09:52] LABS: GLUCOSE 93 MG/DL (70-105)
[2019-06-25 09:53] LABS: TOTAL PROTEIN 8.2 GM/DL (6.4-8.2)
[2019-06-25 09:54] LABS: CARBON DIOXIDE 25 MMOL/L (21-32)
[2019-06-25 09:55] LABS: BILIRUBIN,TOTAL 1.1 MG/DL (0.1-1.0)
[2019-06-25 09:56] LABS: ALKALINE PHOSPHATASE 81 U/L (40-136); CREATININE SERUM 0.78 MG/DL (0.60-1.30); GFR ESTIMATED > 60
[2019-06-25 09:57] LABS: BUN/CREATININE RATIO 10
[2019-06-25 09:59] LABS: ALANINE AMINOTRANSFERASE 80 U/L (0-55)
--- NOTE | 2019-06-25 11:23 | Diagnostic Imaging Report ---
PROCEDURE: US Gallbladder. TECHNIQUE: Multiple real-time grayscale images were obtained over the right upper quadrant in various projections. INDICATION: Abdominal pain. The liver is mildly enlarged at 19 cm. No discrete liver mass is detected. Portal vein is patent and shows normal direction of flow. Gallbladder is without stones or sludge. No wall thickening or biliary duct dilatation is seen. The visualized pancreas is unremarkable. Aorta was poorly visualized due to bowel gas. IVC is patent. Right kidney is without calculi or hydronephrosis. There is no ascites. IMPRESSION: 1. Mild hepatomegaly. 2. No evidence of cholelithiasis or acute cholecystitis. Dictated by: Dictated on workstation # [id number]
== END ==
LOC: RAD 09:20
PROVIDERS: ATTEND Surgery
DX: R16.0 Hepatomegaly, not elsewhere classified (principal); R10.84 Generalized abdominal pain
CPT/HCPCS: 36415; 76705; 80053; 84703; 85025

== ENCOUNTER → 2019-06-27 | Outpatient (CLI) | payer BC ==
[~2019-06-27] MED LIST changes: +CATHETER FLUSH 10 ML SYR IV PRN
--- NOTE | 2019-06-27 11:59 | Diagnostic Imaging Report ---
EXAMINATION: Gallbladder scintigraphy HISTORY: Right upper quadrant pain COMPARISON: None available. TECHNIQUE: Anterior scintigraphic imaging of the abdomen was performed after the intravenous administration of 5.39 mCi Tc-99m Choletec. FINDINGS: The upper abdomen was imaged for 60 minutes with the gamma camera. There is prompt homogeneous uptake of radiopharmaceutical by the liver. There is activity in the common duct and gallbladder by 10 minutes. Small bowel activity is seen by 45 minutes. At 60 minutes, the patient received 8 ounces of ensure. After 45 additional minutes, the gallbladder ejection fraction was calculated to be 77% (normal is >35%) IMPRESSION: 1. Patent common and cystic bile ducts. 2. No gallbladder dysfunction. Dictated by: Dictated on workstation # [id number]
== END ==
LOC: CARD 08:48
PROVIDERS: ATTEND Surgery
DX: R10.84 Generalized abdominal pain (principal)
CPT/HCPCS: 36415; 78227; 84703

== ENCOUNTER → 2020-07-15 | Outpatient (CLI) | payer BC ==
[~2020-07-15] MED LIST changes: -CATHETER FLUSH 10 ML SYR IV PRN
--- NOTE | 2020-07-15 13:42 | Diagnostic Imaging Report ---
PROCEDURE: US Thyroid. TECHNIQUE: Multiple Real-time grayscale images were obtained of the thyroid in various projections. INDICATION: Thyromegaly. FINDINGS: The right lobe of the thyroid measures 4.0 x 2.0 x 1.5 cm and the left lobe measures 4.5 x 1.4 x 1.5 cm. The isthmus is 5 mm in thickness. The left lobe of the thyroid shows homogeneous echotexture. The right lobe contains a circumscribed hypoechoic nodule in the mid aspect measuring 9 mm x 6 mm x 6 mm. No internal calcifications are seen. No other masses are detected. IMPRESSION: Subcentimeter right lobe thyroid nodule. No dominant thyroid mass is detected. Dictated by: Dictated on workstation # [id number]
== END ==
LOC: RAD 12:21
PROVIDERS: ATTEND Nurse Practitioner Family
DX: E04.1 Nontoxic single thyroid nodule (principal)
CPT/HCPCS: 76536